=== PATIENT | female | born 1990 | race Asian ===

== ENCOUNTER → 2024-11-26 12:25 | Outpatient (REF) | payer OTHER, SELFPAY | LOC: REG 12:25 | PROVIDERS: ATTENDING PHYSICIAN Obstetrics & Gynecology; FAMILY PHYSICIAN Physician Assistant Medical | DX: Z34.90 Encounter for supervision of normal pregnancy, unspecified, unspecified trimester (principal) | CPT/HCPCS: 36415; 86850; 86900; 86901; J2790 ==

== ENCOUNTER → 2024-12-31 08:42 | Outpatient (REF) | payer OTHER, SELFPAY | LOC: REG 08:42 | PROVIDERS: ATTENDING PHYSICIAN Obstetrics & Gynecology; FAMILY PHYSICIAN Physician Assistant Medical | DX: Z01.818 Encounter for other preprocedural examination (principal); Z01.812 Encounter for preprocedural laboratory examination | CPT/HCPCS: 36415; 86850; 86870; 86900; 86901 ==

== ENCOUNTER → 2025-02-06 16:26 | Outpatient (REF) | payer BC, SELFPAY | LOC: PNTC 16:26 | PROVIDERS: ATTENDING PHYSICIAN Obstetrics & Gynecology | DX: O36.8190 Decreased fetal movements, unspecified trimester, not applicable or unspecified (principal) | CPT/HCPCS: 76815 ==

== ENCOUNTER 2025-02-06 16:48 | Inpatient (IN) | payer BC, SELFPAY ==
[2025-02-06 17:39] VITALS: BP 134/85; BMI 31.4
[2025-02-06 19:02] LABS: % Basophils 0.4 % (0-2); % Eosinophils 0.6 % (0-6); % Immature Granulocytes 1.3 % (0-0.5); % Lymphocytes 18.1 % (20.5-51.1); % Monocytes 10.7 % (1.7-9.3); % Neutrophils 68.9 % (42.2-75.2); Absolute Eosinophils 0.1 10^3/uL (0-0.7); Absolute Immature Granulocytes 0.2 10^3/uL (0-0.05); Absolute Lymphocytes 2.1 10^3/uL (1.2-3.4); Absolute Monocytes 1.2 10^3/uL (0.1-0.6); Absolute Neutrophils 7.8 10^3/uL (1.4-6.5); Hematocrit 37.3 % (37.0-47.0); Hemoglobin 13.3 g/dL (12.0-16.0); Mean Corp Hgb Conc. 35.7 g/dL (33.0-37.0); Mean Corpuscular Hgb 32.5 pg (27.0-31.0); Mean Corpuscular Volume 91.2 fL (81.0-99.0); Mean Platelet Volume 9.9 fL (7.4-10.4); Nucleated Red Blood Cells % 0 %; Platelet Count 205 10^3/uL (130-400); Red Blood Cell Count 4.09 10^6/uL (4.20-5.40); Red Cell Dist. Width 14.3 % (11.5-14.5); White Blood Cell Count 11.4 10^3/uL (4.8-10.8)
[2025-02-06] MEDS: CYTOTEC 25 MICROGRAM VAG (19:19)
[2025-02-06] MEDS: CYTOTEC PO (23:04)
[2025-02-06] MEDS: CYTOTEC 50 MICROGRAM PO (23:06)
[2025-02-07] MEDS: STADOL 1 MG IV ×4 (01:38→10:35)
[2025-02-07] MEDS: LR 1000 IV ×2 (03:09→03:51)
[2025-02-07] MEDS: CYTOTEC PO (03:24)
[2025-02-07] MEDS: BRETHINE 250 MCG SC (03:59)
[2025-02-07] MEDS: PITOCIN 30 UNITS/NSS 500 ML IV (09:22)
[2025-02-07] MEDS: FENTANYL/BUPIVACAINE 100 EPIDURAL ×2 (13:12→21:55)
[2025-02-07] MEDS: SUBLIMAZE 100 MCG EPIDURAL (13:12)
[2025-02-07] MEDS: PRENATAL PLUS PO (14:59)
[2025-02-08] MEDS: TRANEXAMIC ACID 100 IV (02:16)
[2025-02-08 02:36] LABS: Hematocrit 36.3 % (37.0-47.0); Hemoglobin 12.8 g/dL (12.0-16.0); Mean Corp Hgb Conc. 35.3 g/dL (33.0-37.0); Mean Corpuscular Hgb 32.7 pg (27.0-31.0); Mean Corpuscular Volume 92.6 fL (81.0-99.0); Mean Platelet Volume 9.3 fL (7.4-10.4); Platelet Count 180 10^3/uL (130-400); Red Blood Cell Count 3.92 10^6/uL (4.20-5.40); Red Cell Dist. Width 14.3 % (11.5-14.5); White Blood Cell Count 28.1 10^3/uL (4.8-10.8)
[2025-02-08 02:44] LABS: INR 1.02
[2025-02-08 02:54] LABS: ALT (SGPT) 20 U/L (0-35); AST (SGOT) 30 U/L (14-36); Alkaline Phosphatase 207 U/L (38-126); Blood Urea Nitrogen 10 mg/dl (7-17); Calcium 9.2 mg/dl (8.4-10.2); Carbon Dioxide 21 mmol/L (22-30); Chloride 110 mmol/L (98-107); Estimated Creatinine Clearance > 125 ml/min; Glucose 134 mg/dl (70-99); Potassium 4.2 mmol/L (3.5-5.1); Sodium 136 mmol/L (135-145); Total Bilirubin 1.1 mg/dl (0.2-1.3); Total Protein 5.6 g/dl (6.3-8.2); eGFR > 60.00
[2025-02-08 03:38] LABS: % Basophils 0.3 % (0-2); % Immature Granulocytes 0.9 % (0-0.5); % Lymphocytes 3.8 % (20.5-51.1); % Monocytes 6.9 % (1.7-9.3); % Neutrophils 88.1 % (42.2-75.2); Absolute Basophils 0.1 10^3/uL (0-0.2); Absolute Immature Granulocytes 0.3 10^3/uL (0-0.05); Absolute Lymphocytes 1.1 10^3/uL (1.2-3.4); Absolute Neutrophils 24.7 10^3/uL (1.4-6.5); Nucleated Red Blood Cells % 0 %
[2025-02-08] MEDS: PRENATAL PLUS 1 TABLET PO (07:41)
[2025-02-08] MEDS: TYLENOL 650 MG PO ×4 (07:41→23:05)
[2025-02-08] MEDS: SENOKOT-S 1 TABLET PO (07:41)
[2025-02-08] MEDS: MOTRIN 600 MG PO ×2 (12:49→23:05)
[2025-02-09 06:27] LABS: Hematocrit 28.1 % (37.0-47.0); Hemoglobin 9.8 g/dL (12.0-16.0)
[2025-02-09] MEDS: SENOKOT-S 1 TABLET PO (08:54)
[2025-02-09] MEDS: MOTRIN 600 MG PO ×2 (08:54→16:30)
[2025-02-09] MEDS: PRENATAL PLUS 1 TABLET PO (08:54)
[2025-02-09] MEDS: FEOSOL 325 MG PO (08:58)
[2025-02-09] MEDS: TYLENOL 650 MG PO (16:29)
[2025-02-09] MEDS: PROCTOFOAM-HC FOAM 1 GM RECTAL (20:48)
[2025-02-10] MEDS: TYLENOL 650 MG PO ×3 (01:28→13:47)
[2025-02-10] MEDS: MOTRIN 600 MG PO ×3 (01:28→15:15)
[2025-02-10] MEDS: SENOKOT-S 1 TABLET PO (08:07)
[2025-02-10] MEDS: PRENATAL PLUS 1 TABLET PO (08:07)
[2025-02-10] MEDS: FEOSOL 325 MG PO (08:07)
[2025-02-12 14:39] LABS: Syphilis/T. pallidum Ab Reflex Negative (Negative)
== END 2025-02-10 15:45 | disposition home or self-care (01) | DRG 807 ==
LOC: LDRP 16:48
PROVIDERS: Obstetrics & Gynecology; ADMITTING PHYSICIAN Obstetrics & Gynecology; FAMILY PHYSICIAN Physician Assistant Medical
PROC: 3E0P7VZ Introduction of Hormone into Female Reproductive, Via Natural or Artificial Opening (ICD-10-PCS; 2025-02-06)
PROC: 3E033VJ Introduction of Other Hormone into Peripheral Vein, Percutaneous Approach (ICD-10-PCS; 2025-02-07)
PROC: 0KQM0ZZ Repair Perineum Muscle, Open Approach (ICD-10-PCS; 2025-02-08)
PROC: 10E0XZZ Delivery of Products of Conception, External Approach (ICD-10-PCS; 2025-02-08)
DX: O41.03X0 Oligohydramnios, third trimester, not applicable or unspecified (principal); Z37.0 Single live birth; O36.8130 Decreased fetal movements, third trimester, not applicable or unspecified; O70.1 Second degree perineal laceration during delivery; Z3A.38 38 weeks gestation of pregnancy
CPT/HCPCS: 88307; 36415; 80053; 85014; 85018; 85025; 85610; 85730; 86780; 86850; 86870; 86900; 86901

== ENCOUNTER 2025-03-26 22:39 | Observation (INO) | payer BC, SELFPAY ==
[2025-03-26 15:18] VITALS: BP 129/90
[2025-03-26 15:42] LABS: Hematocrit 38.7 % (37.0-47.0); Hemoglobin 13.6 g/dL (12.0-16.0); Mean Corp Hgb Conc. 35.1 g/dL (33.0-37.0); Mean Corpuscular Volume 87.2 fL (81.0-99.0); Nucleated Red Blood Cells % 0 %; Platelet Count 294 10^3/uL (130-400); Red Cell Dist. Width 11.9 % (11.5-14.5)
[2025-03-26 16:06] LABS: ALT (SGPT) 38 U/L (0-35); AST (SGOT) 30 U/L (14-36); Albumin 4.6 g/dl (3.5-5.0); Alkaline Phosphatase 120 U/L (38-126); Blood Urea Nitrogen 12 mg/dl (7-17); Calcium 9.4 mg/dl (8.4-10.2); Carbon Dioxide 27 mmol/L (22-30); Chloride 106 mmol/L (98-107); Glucose 85 mg/dl (70-99); Potassium 4.6 mmol/L (3.5-5.1); Sodium 139 mmol/L (135-145); Total Protein 7.6 g/dl (6.3-8.2); eGFR > 60.00
[2025-03-26 18:23] VITALS: BMI 29.9
[2025-03-26 18:28] VITALS: BP 123/90
--- NOTE | 2025-03-26 18:30 | EDRN ---
Dr. Correia in room w/ pt at this time.
--- NOTE | 2025-03-26 18:37 | ED.GENMED ---
History of Present Illness
General
Chief Complaint: Skin Problem
Source: patient
Exam Limitations: none
Time Seen by Provider: 03/26/25 17:57
Nursing documentation reviewed up to this point in time: agreed with
History of Present Illness
History of Present Illness:
The patient is a very pleasant 34-year-old female who is currently breast-feeding and status post vaginal delivery from 02/06/2025. Patient reports that several days ago she developed severe right-sided breast pain and redness and was started on
clindamycin 300 mg every 6 hours. Despite taking 5 full days of the clindamycin, patient reports that she still has significant pain in her right breast, especially while feeding. Patient reports she also has noticed ' white material' coming out
of her nipple while feeding that is not milk. Patient reports that she did have fever and headache several days ago but this has gone away.
Past History
Past History
ED Past Medical History: None
ED Past Surgical History: None
Social History
Tobacco: Non-smoker
Alcohol: None
Personal:
Living: with family
Employment: Other
Family History
Family History: Other
Review of Systems
Review of Systems
Allergies reviewed?: Yes
All Other Systems: ROS reviewed and negative except as documented in HPI and ROS
Constitutional: Reports no symptoms
EENT: Reports no symptoms
Respiratory: Reports no symptoms
Cardiac: Reports no symptoms
ABD/GI: Reports no symptoms
: Reports no symptoms
Musculoskeletal: Reports no symptoms
Skin: Reports other
Neurological: Reports no symptoms
Endocrine: Reports no symptoms
Hematologic/Lymphatic: Reports no symptoms
Psychiatric: Reports no symptoms
Phy Exam
Physical Exam
Physical Exam:
Physical Exam
General: no apparent distress, not acutely ill
Neck: supple.
Heart: s1/s2 regular rate and rhythm, no murmur. equal radial pulses.
Lungs: no acute respiratory distress. clear bilaterally
Abdomen: Soft, nontender
Neuro: alert and oriented. no focal neurological deficits
Skin: Mild erythema and warmth of right areolar breast area. Diffuse tenderness to the touch. Mild erythema and warmth of the left areolar breast area
Psychiatric: well kept. interactive and cooperative
Extremities: no edema. no calf tenderness. negative homans. good distal pulses
Course
Orders/Labs/Results
Orders:
Orders
03/26/25 15:30
Complete Blood Count/With Diff Urgent
Comprehensive Metabolic Panel Urgent
03/26/25 19:39
US Breast Right Ltd Urgent
Comment:
Reason For Exam: abscess
03/26/25 19:47
Vancomycin [Vancocin] 2,000 mg 0.9% Sodium Chloride 500 ml [Nss] 500 ml IV NOW
Abnormal Lab Results
03/26/25
15:30
Abs Immat Gran (auto) 0.1 H 10^3/uL
(0-0.05)
Absolute Monos (auto) 1.0 H 10^3/uL
(0.1-0.6)
Monocytes % 9.6 H %
(1.7-9.3)
ALT 38 H U/L
(0-35)
03/26/25 15:30
03/26/25 15:30
Vital Signs
Initial and Last Documented VS:
Initial Vital Signs
Temp Pulse Resp BP Pulse Ox
98.4 F 94 18 129/90 99
03/26/25 15:18 03/26/25 15:18 03/26/25 15:18 03/26/25 15:18 03/26/25 15:18
Last Documented Vital Signs
Temp Pulse Resp BP Pulse Ox
98.4 F 83 16 123/90 100
03/26/25 15:18 03/26/25 18:28 03/26/25 18:28 03/26/25 18:28 03/26/25 18:37
MDM/Problems Addressed
Differential Diagnosis Includes:
Persistent mastitis, clogged milk duct, breast abscess
MDM/Problems Addressed:
Patient presents with acute right breast pain, warmth and redness of skin
*Pulse Oximetry
SaO2: 100
Oxygen Mode of Delivery: Room air
Patient hypoxic: no
Comment: Patient is 100% on room air, not hypoxic
*EKG
Interpreted by ED Provider?: NA
*Grid Casting Machine Operator Helper Interpretation
Rate: Grid Casting Machine Operator Helper- N/A
*Critical Care Note
Total Time (30-74mins, 75-104mins- exclusive of procedures): Not Applicable
Data Reviewed
Review of Other/Old Records Reveals: Progress Notes (Labor and delivery note reviewed from 02/06/2025 when patient had a vaginal )
Source: patient and spouse
Patient Management
Social determinants of health affecting care: Living situation and Strong social support
Discussion with other providers: Other (Dr. Thomas)
Escalation/DeEscalation of care consider admission/obs:
Patient's right breast looks similar to left breast. However, patient is adamant that right breast is still much more painful than left. She is concerned that her mastitis has not improved with the clindamycin, therefore, we will admit her to the
hospital for IV antibiotics. Additionally, I have ordered a breast ultrasound to evaluate for breast abscess
ED Attending Note
-
Portions of this chart may have been created with voice recognition software.� Occasional wrong word or��sound alike� substitutions may have occurred due to the inherent limitations of voice recognition software.
Discharge Plan
Departure
Patient Disposition: Admit
Date of Disposition: 03/26/25
Time of Disposition: 19:40
Admit to: Med/Surg
Admit to doctor: Dr. Thomas
Presentation/result/management discussed w/ accepting MD/DO: Dr. Thomas
Patient with high blood pressure during this ER visit?: No
Condition: Good
Covid-19: Not Applicable
Discharge Problem:
Persistent right mastitis
Prescriptions:
No Action
PNV no.95-ferrous fumarate-FA [] 28 mg iron- 800 mcg Tablet
1 tab PO DAILY Qty: 0
ferrous sulfate [FeroSul] 325 mg (65 mg iron) Tablet
325 mg PO DAILY Qty: 0 0RF
clindamycin HCl 300 mg Capsule
300 mg PO Q6H
Rx Instructions:
FOR 7 DAYS STARTING 03.20.25
calcium carbonate [Calcium 500] 500 mg calcium (1,250 mg) Tablet
500 mg PO DAILY
ibuprofen [Advil] 200 mg Tablet
400 mg PO Q8HPRN PRN (Reason: MILD PAIN)
Referrals:
UNKNOWN - PT DOES,NOT KNOW [Unknown Provider]
Interventions
Interventions:
*Risk Screen - Suicide Last Done: 03/26/25 15:22
*General Assessment Last Done: 03/26/25 18:25
*Neglect/Abuse Screening Last Done: 03/26/25 15:22
*ED- Fall Risk Assessment Last Done: 03/26/25 18:25
*ED COVID-19 Vaccine History Last Done: 03/26/25 18:25
ED-Skin Assessment Last Done: 03/26/25 18:31
Discharge Date and Time
Print Language: MAORI
[2025-03-26] MEDS: VANCOCIN 540 MG IV (20:33)
--- NOTE | 2025-03-26 20:39 | HPS.HSE ---
Family Physician
-
Family Physician: Lala Rivera
Chief Complaint
-
Skin problem
History of Present Illness
The patient is a very pleasant 34-year-old female with no significant past medical history, who is currently breast-feeding and status post vaginal delivery from 02/08/2025. Patient reports that several days ago she developed severe right-sided
breast pain and redness and was started on clindamycin 300 mg every 6 hours. Despite taking 5 full days of the clindamycin, patient reports that she still has significant pain in her right breast, especially while feeding. Patient reports she also
has noticed ' white material' coming out of her nipple while feeding that is not milk. Patient reports that she did have fever and headache several days ago but this has gone away since taking antibiotics.
In the emergency department, labs are unremarkable, U/S right breast ordered.
Patient was given IV antibiotics, Vancomycin.
ED provider, Dr. Correia, spoke with home energy consultant supervisor CIVIL ENGINEERING PROJECT DESIGNER/OB provider, Dr. Thomas, who has accepted the patient to her service. Patient to be admitted for IV antibiotics and further evaluation and treatment.
Medical History
Past Medical History
Past Medical History: Reports None
Past Surgical History: Reports None
Social History
Tobacco: Non-smoker
Alcohol: None
Drug: None
Personal:
Living: With Family
Family History
Family History: Not pertinent
Allergies / Home Medications
Allergies reflects when Allergies were last updated in [facility].
Home Medications with original date entered in [facility]
Allergy/Medication List:
Patient Allergies
Allergy/AdvReac Type Severity Reaction Status Date / Time
Penicillins Allergy Intermediate Hives Verified 03/26/25 15:21
Home Medications
�Medication �Instructions �Recorded
vit no.95-ferrous 1 tab PO DAILY Supplement ##0 02/06/25
fumarate 28 mg-folic acid 800 mcg
tablet ()
ferrous sulfate 325 mg (65 mg 325 mg PO DAILY #0 tabs 02/09/25
iron) tablet (FeroSul)
calcium carbonate 500 mg PO DAILY 03/26/25
clindamycin HCl 300 mg capsule 300 mg PO Q6H 03/26/25
ibuprofen 200 mg tablet (Advil) 400 mg PO Q8HPRN PRN MILD PAIN 03/26/25
Review of Systems
-
History Source: Patient
A 12 point ROS was completed and negative except as noted: Yes
Constitutional: Reports See HPI (Previous fevers, resolved w/antibiotics)
EENT: Reports No Symptoms
Respiratory: Reports No Symptoms
Cardiac: Reports No Symptoms
Abdomen/GI: Reports No Symptoms
: Reports No Symptoms
Musculoskeletal: Reports No Symptoms
Skin: Reports Other (Redness/pain right breast while nursing)
Neurological: Reports No Symptoms
Psych: Reports No Symptoms
Physical Exam
Vital Signs
Vital Signs
Temp Pulse Resp BP Pulse Ox
98.4 F 83 16 123/90 100
03/26/25 15:18 03/26/25 18:28 03/26/25 18:28 03/26/25 18:28 03/26/25 18:37
Physical Exam
General: Well Developed, No Apparent Distress, Conversant and Pain (Reports pain right breast when nursing)
HEENT: NormoCephalic
Respiratory: Clear and Non Labored Respirations
Cardiac: S1/S2 and Regular Rhythm
Breast: Nipple Discharge (breast milk and thick white substance)
GI: Soft and Peg Tube
Skin: Other (Erythema b/l breasts)
Neuro: Awake, Oriented and No Motor Deficits
Psych: Calm
Laboratory Results
-
03/26/25 15:30
03/26/25 15:30
Laboratory Results
Total Bilirubin 0.6 mg/dl (0.2-1.3) 03/26/25 15:30
AST 30 U/L (14-36) 03/26/25 15:30
ALT 38 U/L (0-35) H 03/26/25 15:30
Alkaline Phosphatase 120 U/L (38-126) 03/26/25 15:30
Data Reviewed
-
Lab Data: Labs Reviewed by me
Impression/Plan
-
IMPRESSION:
The patient is a very pleasant 34-year-old female with no significant past medical history, who is currently breast-feeding and status post vaginal delivery from 02/08/2025. Patient reports that several days ago she developed severe right-sided
breast pain and redness
PLAN:
Suspected Mastitis
-Admit to [facility], Med Surg under the service of Dr. Thomas
-Breast U/S ordered, awaiting report
-IV antibiotics: Cefazolin 2 g IV
Note: Vancomycin started in the emergency department and patient had severe pruritis and erythema on her neck, posterior upper back and anterior upper chest. Benadryl 25 mg IV given, with resolution of symptoms.
-Pain medication: Ibuprophen 400 mg Q8H PRN, Warm/Cold compresses
-Continue to breast feed/hand express
-Continue home medications: vitamins, Calcium 500 PO daily
DVT prophylaxis: SCD's
Code status: Full code
--- NOTE | 2025-03-26 21:03 | EDRN ---
Pt c/o of itchiness and redness on back, head and chest while vancomycin infusing. Vanco stopped. ROCIO Burgess notified and at bedside. Pt received 98ml of vancomycin IV total.
[2025-03-26] MEDS: BENADRYL 25 MG IV (21:19)
[2025-03-26 23:40] VITALS: BP 111/75
[2025-03-27 00:30] VITALS: BP 108/75
[2025-03-27] MEDS: ANCEF 10 IV (01:16)
[2025-03-27 04:29] VITALS: BP 119/72
[2025-03-27 05:04] LABS: Hematocrit 37.7 % (37.0-47.0); Hemoglobin 12.9 g/dL (12.0-16.0); Mean Corp Hgb Conc. 34.2 g/dL (33.0-37.0); Mean Corpuscular Volume 88.1 fL (81.0-99.0); Platelet Count 258 10^3/uL (130-400); Red Cell Dist. Width 12.1 % (11.5-14.5)
[2025-03-27 05:25] LABS: Blood Urea Nitrogen 13 mg/dl (7-17); Calcium 9.3 mg/dl (8.4-10.2); Carbon Dioxide 26 mmol/L (22-30); Chloride 109 mmol/L (98-107); Estimated Creatinine Clearance 109 ml/min; Glucose 79 mg/dl (70-99); Potassium 4.3 mmol/L (3.5-5.1); Sodium 140 mmol/L (135-145); eGFR > 60.00
[2025-03-27 08:00] VITALS: BP 118/82
[2025-03-27] MEDS: OSCAL CAL 500 500 MG PO (08:56)
[2025-03-27] MEDS: ANCEF 5 IV (08:56)
[2025-03-27] MEDS: PRENATAL PLUS 1 TABLET PO (08:56)
[2025-03-27] MEDS: FEOSOL 325 MG PO (08:56)
--- NOTE | 2025-03-27 09:16 | LACTATION ---
Brittany asked for formula for her baby because she is concerned about medications. I advised her that the medication Ancef that she is on is considered compatible with and she should continue .
She reports that she has nipple pain. She denies other breast pain. She says she has white spots on her nipple. what she is describing is consistent with a clogged nipple pore. I observed baby latch and mom appeared to be having intense nipple pain.
she has no pain when he feeds on the left side. she had pain with the 21mm pump flange. provided 24mm flanges and she appeared to be more comfortable.
[2025-03-27 10:09] VITALS: BP 118/82
--- NOTE | 2025-03-27 14:00 | W.PN.OBG.DWH ---
Today's Communication / Plan
-
hydrocortisone cream
DC home
Assessment/Plan
-
Patient is a 34yo who presents with a clogged nipple pore
- There was concern for mastitis that did not respond to antibiotics on admission. Breast US was performed and negative for an abscess. On further questioning, patient reports the redness and mastitis symptoms resolved besides the nipple soreness.
Discussed with valuation consultant and it appears patient has a clogged nipple pore. The treatment for this is hydrocortisone cream 4 times daily. She has no fevers, chills and no white count. She otherwise feels well besides the sore nipple
- Patient instructed to finish her course of clindamycin that she is currently on for the mastitis
- She is to use hydrocortisone cream four times daily and to continue to pump and breastfeed
- Stable for DC home. DC instructions and return precautions discussed and all questions answered. She is to call the office if she has any more signs of mastitis
Subjective Data
-
She reports pain at her nipple with . She has no other breast tenderness or redness. She denies fevers or chills. She had mastitis and reports those symptoms have improved but the pain at the nipple persists.
Objective Data
-
Laboratory Results
03/27/25 04:13
03/27/25 04:13
Vital Signs
Temp Pulse Resp BP Pulse Ox
98.6 F 72 18 118/82 98
03/27/25 10:09 03/27/25 10:09 03/27/25 10:09 03/27/25 10:09 03/26/25 23:40
General: well appearing
Breast: no redness, warmth or erythema of either breast, right breast with clogged nipple pore, no signs of infection
[2025-03-27 15:24] VITALS: BP 112/78
== END 2025-03-27 16:30 | disposition home or self-care (01) ==
LOC: LDRP 22:39
PROVIDERS: Nurse Practitioner Family; ADMITTING PHYSICIAN Obstetrics & Gynecology; EMERGENCY PHYSICIAN Emergency Medicine; FAMILY PHYSICIAN Physician Assistant Medical
DX: O92.79 Other disorders of lactation (principal)
CPT/HCPCS: 76642; 80048; 80053; 85025; 85027; 96365; 99284